=== PATIENT | male | born 1985 | race Two or more races ===

== ENCOUNTER 2020-08-17 01:27 | Emergency (ER) | payer MEDICAID ==
[~2020-08-17] VITALS: Ht 167.6 cm; Wt 80.0 kg
[2020-08-17 02:11] VITALS: BP 134/68
[2020-08-17] MEDS ORDERED: ALBU8HFA IH (02:22)
== END 2020-08-17 03:30 | disposition left against medical advice (07) ==
LOC: EMS 01:34
DX: K08.89 Other specified disorders of teeth and supporting structures (principal); Z53.21 Procedure and treatment not carried out due to patient leaving prior to being seen by health care provider